=== PATIENT | male | born 1965 | race Caucasian/White ===

== ENCOUNTER 2019-05-22 08:00 | Day surgery (SDC) | payer OTHER ==
[~2019-05-22] VITALS: Ht 175.3 cm; Wt 82.2 kg
[~2019-05-22 08:00] MED LIST: HYDACE5 PO
[2019-05-22] MEDS ORDERED: HYDHCL25 (08:30)
[2019-05-22] MEDS ORDERED: BACL10 (08:30)
== END 2019-05-22 09:58 | disposition home or self-care (01) ==
LOC: ORSCSDS 08:00
PROVIDERS: Internal Medicine Gastroenterology
PROC: 0DB68ZX Excision of Stomach, Via Natural or Artificial Opening Endoscopic, Diagnostic (ICD-10-PCS; principal; 2019-05-22 09:00)
DX: K74.60 Unspecified cirrhosis of liver (principal); K25.9 Gastric ulcer, unspecified as acute or chronic, without hemorrhage or perforation; K29.80 Duodenitis without bleeding; F43.10 Post-traumatic stress disorder, unspecified; K29.70 Gastritis, unspecified, without bleeding; Z87.891 Personal history of nicotine dependence; F41.8 Other specified anxiety disorders; Z79.899 Other long term (current) drug therapy
CPT/HCPCS: 88305; 88342; J2250; J2704

== ENCOUNTER 2019-09-19 11:35 | Day surgery (SDC) | payer OTHER ==
[~2019-09-19] VITALS: Ht 175.3 cm; Wt 76.4 kg
[~2019-09-19 11:35] MED LIST changes: +BACL10; +ESCI10 PO; +HYDHCL25; +IBUP600 PO; +MIRT15ST PO; +Voltaren100 GM TOP
--- NOTE | 2019-09-19 12:58 | NUR ---
PT ADMITTED TO [facility]. LESVIA WITH PLANNED PROCEDURE. LUNG SOUNDS CLEAR. PT ARRIVED VIA [facility]IDES. ATTEMPTED TO ARRANGE MEDICAL TRANSPORT VIA [employer] BUT THEY STATED THEY CAN NOT TAKE HOME IF HE DID NOT COME TO FACILITY VIA THEM. SPOKE WITH DR. PALM AND VERBAL ORDER GIVEN THAT PATIENT MAY GO HOME VIA [facility].
[2019-09-19] MEDS ORDERED: NAPR220 PO (13:04)
--- NOTE | 2019-09-19 13:30 | NUR ---
09/19/19 1330 Matthew Pepper History, Chart, Medications and Allergies reviewed before start of procedure.MONITOR INTACT WITH CONTINUOUS PULSE OXIMETRY AND INTERMITTENT BP.3-LEAD EKG REVIEWED WITH PHYSICIAN PRIOR TO START OF PROCEDURE.O2 VIA N/C INTACT THROUGHOUT SEDATION/PROCEDURE. Patient confirms NPO status and agrees with scheduled surgery.PATIENT DETERMINED TO BE ASA APPROPRIATE FOR PROPOFOL SEDATION PRIOR TO START OF PROCEDURE BY DR. GORMAN.
--- NOTE | 2019-09-19 13:31 | NUR ---
FROM ENDO ROOM 1 TO STEP VSS
--- NOTE | 2019-09-19 13:48 | NUR ---
Discharge instructions reviewed with patient. Patient verbalizes understanding. Copy given to patient to take home. Patient States Post-Procedure ride home has been arranged. Discharged via wheelchair to private car for ride home.
== END 2019-09-19 23:20 | disposition home or self-care (01) ==
LOC: ORSCMMR 11:35 → ORD 13:15 → ORSCMMR 23:20
PROVIDERS: Internal Medicine Gastroenterology
PROC: 0DB68ZX Excision of Stomach, Via Natural or Artificial Opening Endoscopic, Diagnostic (ICD-10-PCS; principal; 2019-09-19 13:15)
DX: Z87.11 Personal history of peptic ulcer disease (principal); K20.9 Esophagitis, unspecified; K29.70 Gastritis, unspecified, without bleeding; K74.60 Unspecified cirrhosis of liver
CPT/HCPCS: J2704; J7120

== ENCOUNTER 2020-05-11 12:20 | Day surgery (SDC) | payer OTHER ==
[~2020-05-11] VITALS: Ht 175.3 cm; Wt 77.7 kg
[~2020-05-11 12:20] MED LIST changes: +NAPR220 PO
== END 2020-05-11 14:08 | disposition home or self-care (01) ==
LOC: ORSCSDS 12:20
PROVIDERS: Internal Medicine Gastroenterology
PROC: 0DBK8ZX Excision of Ascending Colon, Via Natural or Artificial Opening Endoscopic, Diagnostic (ICD-10-PCS; principal; 2020-05-11 14:00)
DX: Z12.11 Encounter for screening for malignant neoplasm of colon (principal); D12.2 Benign neoplasm of ascending colon; K64.8 Other hemorrhoids; K74.60 Unspecified cirrhosis of liver; Z87.11 Personal history of peptic ulcer disease; Z86.19 Personal history of other infectious and parasitic diseases; K57.30 Diverticulosis of large intestine without perforation or abscess without bleeding; F17.210 Nicotine dependence, cigarettes, uncomplicated; Z79.899 Other long term (current) drug therapy
CPT/HCPCS: 88305; J2704; J7120

== ENCOUNTER 2021-12-22 09:52 | Day surgery (SDC) | payer OTHER ==
[~2021-12-22] VITALS: Ht 175.3 cm; Wt 78.0 kg
[~2021-12-22 09:52] MED LIST changes: +BACL10 PO; +BUTALB-ACETAMI1 EAC6 PO; +CYCL10 PO; +DIVA500ER PO; +GABA300 PO; +HYDPAM50 PO; +MELO7.5 PO; +NAPR500 PO; +OMEP20ER PO
== END 2021-12-22 11:22 | disposition home or self-care (01) ==
LOC: ORSCSDS 09:52
PROVIDERS: Internal Medicine Gastroenterology
PROC: 0DJ08ZZ Inspection of Upper Intestinal Tract, Via Natural or Artificial Opening Endoscopic (ICD-10-PCS; principal; 2021-12-22 11:15)
DX: K74.60 Unspecified cirrhosis of liver (principal); Z86.19 Personal history of other infectious and parasitic diseases; K44.9 Diaphragmatic hernia without obstruction or gangrene; F17.210 Nicotine dependence, cigarettes, uncomplicated; Z79.899 Other long term (current) drug therapy
CPT/HCPCS: J2704; J7120

== ENCOUNTER 2022-02-07 23:57 | Emergency (ER) | payer OTHER ==
[~2022-02-07] VITALS: Ht 175.3 cm; Wt 77.1 kg
[2022-02-08] MEDS ORDERED: IBUP800 PO ×2 (03:56→04:23)
== END 2022-02-08 04:37 | disposition home or self-care (01) ==
LOC: ER 23:57
DX: S82.65XA Nondisplaced fracture of lateral malleolus of left fibula, initial encounter for closed fracture (principal); X50.1XXA Overexertion from prolonged static or awkward postures, initial encounter; Z88.8 Allergy status to other drugs, medicaments and biological substances; Z79.899 Other long term (current) drug therapy
CPT/HCPCS: 29515; 73610; 99283-25; A9270

== ENCOUNTER 2023-06-12 11:05 | Emergency (ER) | payer OTHER ==
[~2023-06-12] VITALS: Ht 175.3 cm; Wt 78.5 kg
[~2023-06-12 11:05] MED LIST changes: +IBUP800 PO
[2023-06-12 11:57] VITALS: BP 131/98
== END 2023-06-12 15:30 | disposition home or self-care (01) ==
LOC: ER 11:05
DX: H53.8 Other visual disturbances (principal); Z79.899 Other long term (current) drug therapy; Z88.8 Allergy status to other drugs, medicaments and biological substances
CPT/HCPCS: 70450; 99284-25

== ENCOUNTER 2023-10-17 11:09 | Day surgery (SDC) | payer OTHER ==
[~2023-10-17] VITALS: Ht 175.3 cm; Wt 75.5 kg
[~2023-10-17 11:09] MED LIST changes: +Lactated Ringer's 1,000 ML IV ONE; +propofoL 0 ML IV ONE; +propofoL 50 ML IV ONE
[2023-10-17] MEDS ORDERED: Cyclobenzaprine5 MG (11:32)
[2023-10-17] MEDS ORDERED: Lactated Ringer's 1,000 ML IV ONE (12:04)
[2023-10-17 12:47] VITALS: BP 128/85
== END 2023-10-17 13:06 | disposition home or self-care (01) ==
LOC: ORSCSDS 11:09
PROVIDERS: Specialist
PROC: 0DB68ZX Excision of Stomach, Via Natural or Artificial Opening Endoscopic, Diagnostic (ICD-10-PCS; principal; 2023-10-17 12:45)
DX: K74.60 Unspecified cirrhosis of liver (principal); Z13.810 Encounter for screening for upper gastrointestinal disorder; K44.9 Diaphragmatic hernia without obstruction or gangrene; K31.A0 Gastric intestinal metaplasia, unspecified; K31.89 Other diseases of stomach and duodenum; Z86.19 Personal history of other infectious and parasitic diseases; F41.9 Anxiety disorder, unspecified; Z79.899 Other long term (current) drug therapy
CPT/HCPCS: 88305; J2704; J7120

== ENCOUNTER 2024-04-04 09:50 | Day surgery (SDC) | payer OTHER ==
[~2024-04-04] VITALS: Ht 175.3 cm; Wt 76.8 kg
[~2024-04-04 09:50] MED LIST changes: +Cyclobenzaprine5 MG; -Lactated Ringer's 1,000 ML IV ONE; -propofoL 0 ML IV ONE; -propofoL 50 ML IV ONE
[2024-04-04] MEDS ORDERED: BUTALB-ACETAMI1 EAC6 (10:28)
[2024-04-04] MEDS ORDERED: Lactated Ringer's 1,000 ML IV ONE ×2 (11:29→11:34)
[2024-04-04] MEDS ORDERED: propofoL 50 ML IV ONE (11:34)
[2024-04-04 13:39] VITALS: BP 149/99
== END 2024-04-04 12:35 | disposition home or self-care (01) ==
LOC: ORSCSDS 09:50
PROVIDERS: Specialist
PROC: 0DB68ZX Excision of Stomach, Via Natural or Artificial Opening Endoscopic, Diagnostic (ICD-10-PCS; principal; 2024-04-04 11:45)
DX: K31.A0 Gastric intestinal metaplasia, unspecified (principal); K29.50 Unspecified chronic gastritis without bleeding; K44.9 Diaphragmatic hernia without obstruction or gangrene; K74.60 Unspecified cirrhosis of liver; B19.20 Unspecified viral hepatitis C without hepatic coma; F41.9 Anxiety disorder, unspecified; Z79.899 Other long term (current) drug therapy; Z86.19 Personal history of other infectious and parasitic diseases
CPT/HCPCS: 88305; 88341; 88342; J2704; J7120

== ENCOUNTER 2025-01-28 12:13 | Day surgery (SDC) | payer OTHER ==
[~2025-01-28] VITALS: Ht 175.3 cm; Wt 77.3 kg
[~2025-01-28 12:13] MED LIST changes: +BUTALB-ACETAMI1 EAC6; +GABA100 PO; +HYDHCL25 PO
[2025-01-28] MEDS ORDERED: albuterol sulfate HF (12:27)
[2025-01-28] MEDS ORDERED: MULVITA (12:27)
[2025-01-28] MEDS ORDERED: VITAMIN D310 MC4 (12:27)
[2025-01-28 14:47] VITALS: BP 131/80
== END 2025-01-28 14:47 | disposition home or self-care (01) ==
LOC: ORSCSDS 12:13
PROVIDERS: Specialist
PROC: 0DBL8ZX Excision of Transverse Colon, Via Natural or Artificial Opening Endoscopic, Diagnostic (ICD-10-PCS; principal; 2025-01-28 14:00)
PROC: 0DBM8ZX Excision of Descending Colon, Via Natural or Artificial Opening Endoscopic, Diagnostic (ICD-10-PCS; principal; 2025-01-28 14:00)
PROC: 0DBN8ZX Excision of Sigmoid Colon, Via Natural or Artificial Opening Endoscopic, Diagnostic (ICD-10-PCS; principal; 2025-01-28 14:00)
PROC: 0DB68ZX Excision of Stomach, Via Natural or Artificial Opening Endoscopic, Diagnostic (ICD-10-PCS; principal; 2025-01-28 14:00)
DX: K70.30 Alcoholic cirrhosis of liver without ascites (principal); K31.A11 Gastric intestinal metaplasia without dysplasia, involving the antrum; K44.9 Diaphragmatic hernia without obstruction or gangrene; Z12.11 Encounter for screening for malignant neoplasm of colon; D12.4 Benign neoplasm of descending colon; D12.5 Benign neoplasm of sigmoid colon; K63.5 Polyp of colon; K64.8 Other hemorrhoids; K57.30 Diverticulosis of large intestine without perforation or abscess without bleeding; Z86.0101 Personal history of adenomatous and serrated colon polyps; F41.9 Anxiety disorder, unspecified; F17.290 Nicotine dependence, other tobacco product, uncomplicated; Z79.899 Other long term (current) drug therapy
CPT/HCPCS: 88305; 88342; J2704; J7120